=== PATIENT | male | born 1975 ===

== ENCOUNTER 2024-10-15 20:29 | Emergency (ER) | payer SELFPAY ==
[~2024-10-15] VITALS: Wt 81.6 kg
[2024-10-15] MEDS ORDERED: Ketorolac Tromethamine 30 MG/ML VIAL IV ONE (20:55)
[2024-10-15] MEDS ORDERED: Metoclopramide Hydrochloride 10 MG/2 ML VIAL IV ONE (20:55)
[2024-10-15] MEDS ORDERED: diphenhydrAMINE hydrochloride 50 MG/ML VIAL IV ONE (20:55)
[2024-10-15] MEDS ORDERED: Dexamethasone Sodium Phospha 20 MG/5 ML VIAL IV ONE (20:55)
[2024-10-15] MEDS ORDERED: NURTEC ODT75 MG PO (22:55)
== END 2024-10-15 23:10 | disposition home or self-care (01) ==
LOC: ED 20:29
DX: G43.909 Migraine, unspecified, not intractable, without status migrainosus (principal); K21.9 Gastro-esophageal reflux disease without esophagitis